=== PATIENT | male | born 2000 | race Caucasian/White ===

== ENCOUNTER 2020-06-15 01:43 | Emergency (ER) | payer SELFPAY ==
[~2020-06-15] VITALS: Ht 188 cm; Wt 81.6 kg
--- NOTE | 2020-06-15 01:57 | NUR ---
IN TO [facility]
[2020-06-15] MEDS ORDERED: CIPROFLOXACIN 500 MG TAB PO STA (02:01)
[2020-06-15] MEDS ORDERED: PREDNISONE 20 MG TAB PO ONE (02:15)
[2020-06-15] MEDS ORDERED: HYDROCODONE/APAP 5MG-325MG TAB PO ONE (02:15)
[2020-06-15] MEDS ORDERED: CLINDAMYCIN PHOS 600 MG/ 4 ML VIAL IM ONE (02:15)
[2020-06-15] MEDS ORDERED: CIPRO500 MG PO (02:31)
[2020-06-15] MEDS ORDERED: PREDNISONE20 MG PO (02:31)
[2020-06-15] MEDS ORDERED: BACTRIM DS TAB1 EACH PO (02:31)
--- NOTE | 2020-06-15 02:31 | Emergency Department Note ---
History of Present Illnes History of Present Illness Chief Complaint: left big toe swelling/redness/pain History of Present Illness This is a 19 year old male. was doing well prior to this. +pus tnight Historian: Patient Arrival Mode: Car Additional Treatment SLIMER: NONE History limited by: condition of the patient (normal) Product Craftsman Required: No Onset (how long ago): week(s) (1) Location: left big toe Quality: sharp Radiation: Reports non-radiation Severity: moderate Onset quality: gradual Duration (how long): week(s) (1) Timing of current episode: constant Progression: worsening Chronicity: new Context: Denies recent illness, Denies recent surgery, Denies recent immobilization, Denies recent travel, Denies trauma/injury, Denies new medications, Denies hx of DVT/PE, Denies non-compliance w/ medications Relieving factors: rest Exacerbating factors: movement Associated symptoms: Reports denies other symptoms Treatments prior to arrival: none Past Medical/Family History Physician Review I have reviewed the patient's past medical and family history. Any updates have been documented here. Past Medical History Recent Fever: No Clinical Suspicion of Infectio: No New/Unexplained Change in Ment: No Past Medical History: None Other Surgery: 2 RODS LUE Social History Smoking Cessation: Current every day smoker Alcohol Use: None Any Illegal Drug Use: Yes ([facility]) Physically hurt or threatened: No Other Any Pre-Existing Lines (PICC,: No Review of Systems Review of Systems Constitutional: Reports no symptoms EENTM: Reports no symptoms Cardiovascular: Reports no symptoms Respiratory: Reports no symptoms Gastrointestinal: Reports no symptoms Genitourinary: Reports no symptoms Musculoskeletal: Reports no symptoms Integumentary: Reports as per HPI Neurological: Reports no symptoms Psychological: Reports no symptoms Endocrine: Reports no symptoms Hematological/Lymphatic: Reports no symptoms Review of other systems: All other systems negative Physical Exam Related Data Allergies: Coded Allergies: No Known Drug Allergies (Verified Allergy, Unknown, 06/15/20) Triage Vital Signs Vital Signs Date Time Temp Pulse Resp B/P (MAP) Pulse Ox O2 Delivery O2 Flow Rate FiO2 06/15/20 01:46 98.3 99 18 139/70 100 Room Air Physical Exam CONSTITUTIONAL Constitutional: Present well-developed, Present well-nourished HENT HENT: Present normocephalic, Present atraumatic, Present oropharynx clear/moist, Present nose normal HENT L/R: Present left ext ear normal, Present right ext ear normal EYES Eyes: Reports PERRL, Reports conjunctivae normal NECK Neck: Present ROM normal, Present supple PULMONARY Pulmonary: Present effort normal, Present breath sounds normal CARDIOVASCULAR Cardiovascular: Present regular rhythm, Present heart sounds normal, Present capillary refill normal, Present normal rate GASTROINTESTINAL Abdominal: Present soft, Present nontender, Present bowel sounds normal GENITOURINARY Genitourinary: Present exam deferred SKIN Skin: Present warm, Present dry, Present erythema (left big toe(dorsal side)), Present rash (erythematomous swollen, tender blanching, fluctuating maculopapular rash distal dorsal left big toe) MUSCULOSKELETAL Musculoskeletal: Present ROM normal NEUROLOGICAL Neurological: Present alert, Present oriented x 3, Present no gross motor or sensory deficits PSYCHOLOGICAL Psychological: Present mood/affect normal, Present judgement normal Procedures Incision and Drain Emergent situation: Yes Type of anesthesia: local Risks and benefits discussed: Yes Verbal consent obtained: Yes Consent given by: patient Prepped and draped in sterile: Yes Two patient identifiers confir: name, date of , medical record number Identity confirmed by: patient Procedure verified: Yes Side verified: yes Site verified: yes Type: abscess Size: 2cm Site: scalp (number 11) Skin preparation: other (hygrogen peroxide) Anesthesia method: topical application (ice pack) Patient sedated: No Needle aspiration: No Incision type: single straight (along the cuticle) Incision depth: submucosal Scalpel blade: 11 Wound management: extensive cleaning Drainage: purulent Drainage amount: moderate Wound treatment: wound left open Packing used: none Patient tolerance: tolerated well Procedure attestation: I performed the procedure Assessment & Plan Medical Decision Making MDM see below Assessment & Plan Final Impression: (1) Paronychia of great toe, left Depart Disposition: HOME, SELF-CARE Last Vital Signs Date Time Temp Pulse Resp B/P (MAP) Pulse Ox O2 Delivery O2 Flow Rate FiO2 06/15/20 01:46 98.3 99 18 139/70 100 Room Air Home Meds Active Scripts Prednisone (PREDNISONE) 20 Mg Tab, 60 MG PO DAILY PRN for MODERATE PAIN (4-6), #9 TAB take all 3 20 mg pills at once// START AT 11PM Prov:BLAIRE STRANGE 06/15/20 Ciprofloxacin Hcl (CIPRO) 500 Mg Tablet, 500 MG PO Q12H, #20 TAB Prov:BLAIRE STRANGE 06/15/20 Sulfamethoxazole/Trimethoprim (BACTRIM DS TABLET) 1 Each Tablet, 1 TAB PO Q12H, #20 TAB Prov:BLAIRE STRANGE 06/15/20 Medications in the ED Clindamycin Phosphate 600 mg ONCE ONCE IM ; Start 06/15/20 at 02:15; Stop 06/15/20 at 02:16; Status UNV Prednisone 60 mg ONCE ONCE PO ; Start 06/15/20 at 02:15; Stop 06/15/20 at 02:16; Status UNV Ciprofloxacin 500 mg ONCE STAT PO ; Start 06/15/20 at 02:01; Stop 06/15/20 at 02:02; Status UNV Acetaminophen/ Hydrocodone Bitart 1 ea ONCE ONCE PO ; Start 06/15/20 at 02:15; Stop 06/15/20 at 02:16; Status UNV BLAIRE STRANGE Jun 15, 2020 02:31
--- NOTE | 2020-06-15 02:43 | NUR ---
WOUND CX OBTAINED BY WITH I&D
[2020-06-15 02:59] VITALS: BP 139/70
== END 2020-06-15 03:03 | disposition home or self-care (01) ==
LOC: FSED 02:00
DX: L03.032 Cellulitis of left toe (principal); F17.210 Nicotine dependence, cigarettes, uncomplicated
CPT/HCPCS: 10060; 87071; 87205; 96372; 99283; J7512

== ENCOUNTER 2021-12-04 12:27 | Emergency (ER) | payer BC, OTHER ==
[~2021-12-04] VITALS: Ht 188 cm; Wt 96.8 kg
[~2021-12-04 12:27] MED LIST: BACTRIM DS TAB1 EACH PO; CIPRO500 MG PO; PREDNISONE20 MG PO
[2021-12-04] MEDS ORDERED: IBUPROFEN IB200 MG PO (12:50)
[2021-12-04] MEDS ORDERED: ACETAMINOPHEN500 MG PO (12:50)
== END 2021-12-04 13:00 | disposition home or self-care (01) ==
LOC: FSED 12:40
DX: M25.512 Pain in left shoulder (principal); S40.212A Abrasion of left shoulder, initial encounter; V43.52XA Car driver injured in collision with other type car in traffic accident, initial encounter; Y92.488 Other paved roadways as the place of occurrence of the external cause
CPT/HCPCS: 99282

== ENCOUNTER 2022-03-03 22:23 | Emergency (ER) | payer BC, OTHER ==
[~2022-03-03] VITALS: Ht 188 cm; Wt 96.6 kg
[~2022-03-03 22:23] MED LIST changes: +ACETAMINOPHEN500 MG PO; +IBUPROFEN IB200 MG PO
[2022-03-03] MEDS ORDERED: NAPROSYN500 MG PO (23:43)
[2022-03-03] MEDS ORDERED: CYCLOBENZAPRINE10 MG PO (23:44)
[2022-03-03] MEDS ORDERED: BACITRACIN ZINC 0.9GM TP ONE (23:48)
[2022-03-03 23:58] VITALS: BP 109/78
== END 2022-03-03 23:58 | disposition home or self-care (01) ==
LOC: FSED 22:26
DX: S00.83XA Contusion of other part of head, initial encounter (principal); S16.1XXA Strain of muscle, fascia and tendon at neck level, initial encounter; S50.812A Abrasion of left forearm, initial encounter; S40.211A Abrasion of right shoulder, initial encounter; V43.52XA Car driver injured in collision with other type car in traffic accident, initial encounter; Y92.488 Other paved roadways as the place of occurrence of the external cause; F17.210 Nicotine dependence, cigarettes, uncomplicated
CPT/HCPCS: 99282